=== PATIENT | female | born 2000 | race Caucasian/White ===

== ENCOUNTER 2021-06-08 19:48 | Emergency (ER) | payer OTHER ==
[~2021-06-08] VITALS: Ht 162.6 cm; Wt 52.2 kg
[2021-06-08] MEDS ORDERED: PRENA1 TRUE CO1 EACH PO (23:19)
== END 2021-06-08 23:44 | disposition home or self-care (01) ==
LOC: ER 19:48
DX: O26.891 Other specified pregnancy related conditions, first trimester (principal); R10.2 Pelvic and perineal pain; Z3A.01 Less than 8 weeks gestation of pregnancy

== ENCOUNTER 2021-06-16 18:16 | Emergency (ER) | payer OTHER ==
[~2021-06-16] VITALS: Ht 162.6 cm; Wt 52.2 kg
[~2021-06-16 18:16] MED LIST: PRENA1 TRUE CO1 EACH PO
== END 2021-06-16 19:36 | disposition home or self-care (01) ==
LOC: ER 18:16
DX: R22.9 Localized swelling, mass and lump, unspecified (principal); Z34.90 Encounter for supervision of normal pregnancy, unspecified, unspecified trimester

== ENCOUNTER 2021-08-17 18:01 | Emergency (ER) | payer OTHER ==
[~2021-08-17] VITALS: Ht 157.5 cm; Wt 52.2 kg
== END 2021-08-17 22:14 | disposition home or self-care (01) ==
LOC: ER 18:01
DX: U07.1 COVID-19 (principal); Z3A.16 16 weeks gestation of pregnancy; O26.892 Other specified pregnancy related conditions, second trimester